=== PATIENT | male | born 1975 | race Caucasian/White ===

== ENCOUNTER 2020-01-24 22:04 | Emergency (ER) | payer OTHER ==
[2020-01-24 22:21] VITALS: TEMP 98.2
--- NOTE | 2020-01-24 22:26 | ED.PDOC ---
History of Present Illness - General Chief Complaint: Bite: Animal/Insect/Human Time Seen by Provider: 01/24/20 22:19 Source: patient Exam Limitations: no limitations - History of Present Illness Initial Comments: 45 y/o male bitten by his own dog just travel [place]. bites to both arms. dog is up to date on vaccines. Occurred: just prior to arrival Pain - Upper Extremity: moderate: Upper arm, right - 2 cm laceration overlying biceps, Forearm, left - puncture wound x 2, Forearm, right - puncture wound x 3 Method of Injury: other - dog bite Improving Factors: nothing Worsening Factors: movement Allergies/Adverse Reactions: Allergies NO KNOWN ALLERGY Allergy (Verified 01/24/20 22:33) Home Medications: Ambulatory Orders Amoxicillin & Pot Clavulanate [Augmentin Tab] 875 mg PO BID 10 Days #20 tab 01/24/20 Ibuprofen 600 mg PO Q6HR PRN 7 Days #20 tab 01/24/20 Tramadol HCl [Conzip] 100 mg PO Q6HR PRN #20 cap 01/24/20 Review of Systems - Review of Systems Constitutional: States: no symptoms reported Musculoskeletal: States: muscle pain Skin: States: other - punctures multiple, one laceration Neurological: States: no symptoms reported Past Medical History (General) - Patient Medical History Hx Seizures: No Hx Stroke: No Hx Dementia: No Hx Asthma: Yes Hx of COPD: No Hx Cardiac Disorders: No Hx Congestive Heart Failure: No Hx Pacemaker: No Hx Hypertension: Yes Hx Thyroid Disease: No Hx Diabetes: No Hx Gastroesophageal Reflux: No Hx Renal Disease: No Hx Cancer: No Hx of HIV: No Hx Hepatitis C: No Hx MRSA: No Surgical History: no surgical history - Vaccination History Hx Tetanus, Diphtheria Vaccination: Yes - 1.5 years ago. Hx Influenza Vaccination: No Hx Pneumococcal Vaccination: No - Social History Hx Tobacco Use: No Hx Chewing Tobacco Use: No Hx Alcohol Use: Yes Hx Substance Use: No Hx Substance Use Treatment: No Hx Depression: No Feels Threatened In Home Enviroment: No Feels Threatened In a Relationship: No Hx Physical Abuse: No Hx Emotional Abuse: No Hx Suspected Abuse: No - Female History Patient is a Female of Child Bearing Age (10 -59 yrs old): No Physical Exam - Physical Exam General Appearance: Alert Eyes, Ears, Nose, Throat Exam: normal ENT inspection Neck: non-tender, full range of motion, supple Cardiovascular/Respiratory: normal peripheral pulses Elbow/Forearm Exam: swelling - multiple punctures to bilateral forearms, one 3 cm laceration overlying R biceps Hand Exam: normal inspection, normal ROM Neuro/Tendon: normal sensation, normal motor functions, normal tendon functions Mental Status: alert, oriented x 3 Procedures - Laceration/Wound Repair Right Upper Anterior Arm Wound's Depth, Shape: superficial Wound Explored: contaminated Anesthesia: Lidocaine w/ Epi Wound Debrided: none Wound Repaired With: sutures Suture Size/Type: 4:0 Number of Sutures: 3 Layer Closure?: No Departure - Departure Clinical Impression: Bite wound, Bite by animal Disposition: Discharge to Home or Self Care Condition: Good Departure Forms: ED Discharge - Pt. Copy, Patient Portal Self Enrollment Instructions: DI for Animal Bites Referrals: Jonathan Palomo MD [Primary Care Provider] - 1-2 Weeks Prescriptions: Ibuprofen 600 mg PO Q6HR PRN 7 Days #20 tab PRN Reason: Pain Tramadol HCl [Conzip] 100 mg PO Q6HR PRN #20 cap PRN Reason: Pain Amoxicillin & Pot Clavulanate [Augmentin Tab] 875 mg PO BID 10 Days #20 tab Home Medications: Ambulatory Orders Amoxicillin & Pot Clavulanate [Augmentin Tab] 875 mg PO BID 10 Days #20 tab 01/24/20 Ibuprofen 600 mg PO Q6HR PRN 7 Days #20 tab 01/24/20 Tramadol HCl [Conzip] 100 mg PO Q6HR PRN #20 cap 01/24/20
[2020-01-24] MEDS ORDERED: AMOXICILLIN & POT CLAVULANATE 875 MG TAB PO ONE (22:36)
[2020-01-24] MEDS ORDERED: LIDOCAINE 1% W/ EPINEPHRINE 20 ML VIAL INJ ONE (23:00)
[2020-01-24] MEDS ORDERED: NEOMYCIN-BACITRACIN-POLYMYXIN 0.9 GM UD TOP ONE (23:16)
[2020-01-24 23:28] VITALS: BP 148/96; O2SAT 97
== END 2020-01-24 23:27 | disposition home or self-care (01) ==
LOC: ER 22:04
DX: S41.111A Laceration without foreign body of right upper arm, initial encounter (principal); I10 Essential (primary) hypertension; S51.832A Puncture wound without foreign body of left forearm, initial encounter; S51.831A Puncture wound without foreign body of right forearm, initial encounter; W54.0XXA Bitten by dog, initial encounter; Y92.9 Unspecified place or not applicable